=== PATIENT | female | born 1950 | race Caucasian/White ===

== ENCOUNTER 2016-07-13 18:53 | Emergency (ER) | payer OTHER ==
[~2016-07-13] VITALS: Ht 157.5 cm; Wt 87.7 kg
[2016-07-13 19:35] LABS: HEMATOCRIT 44.6 % (36.0-46.0); MCH 30.2 PG (29.0-34.0); MCHC 33.2 G/DL (30.0-36.0); MEAN PLAT.VOLUME 10.3 uM^3 (9.5-12.4); PLATELET COUNT 163 K/uL (156-360); RBC DIS.WIDTH-CV 12.4 % (11.8-14.6); RBC DIS.WIDTH-SD 41.2 % (39-53); WHITE BLOOD COUNT 4.9 K/uL (4.1-10.2)
[2016-07-13 19:45] LABS: CHLORIDE 104 mEq/L (99-109); POTASSIUM 4.2 mEq/L (3.7-5.4); SODIUM 139 mEq/L (136-147)
[2016-07-13 19:47] LABS: GLUCOSE 102 mg/dL (70-99)
[2016-07-13 19:49] LABS: ANION GAP 11 MEQ/L (2-14); TOTAL BILIRUBIN 0.4 mg/dL (0.0-1.0)
[2016-07-13 19:51] LABS: ALKALINE PHOSPHATASE 90 IU/L (3-129); GFR ESTIMATE (CALCULATED) > 59 mL/min/
[2016-07-13 19:52] LABS: UREA NITROGEN (BUN) 14 mg/dL (9-23)
[2016-07-13 19:57] LABS: TROP-I INTERPRETATION NEGATIVE; TROPONIN-I < 0.01 ng/mL (0.0-0.30)
[2016-07-13 20:48] LABS: ADD MIUA? YES; BILIRUBIN NEGATIVE; BLOOD NEGATIVE; COLOR YELLOW ((YELLOW)); GLUCOSE (STRIP) NEGATIVE; KETONES NEGATIVE; LEUKOCYTES SMALL; NITRITE NEGATIVE; PROTEIN (STRIP) NEGATIVE; SPECIFIC GRAVITY 1.014 (1.000-1.030); UROBILINOGEN 0.2 MG/DL (0.2-1.0)
[2016-07-13 20:52] LABS: BACTERIA RARE /HPF; EPITHELIAL CELLS RARE /HPF; MUCUS TRACE /LPF; RED BLOOD CELLS 0-5 /HPF (0-5); UCUL ADDED? NO
[2016-07-13] MEDS ORDERED: REGLAN10 MG PO (22:14)
[2016-07-13] MEDS ORDERED: IMITREX25 MG PO (22:14)
[2016-07-13 22:19] VITALS: BP 140/86
== END 2016-07-13 22:28 | disposition home or self-care (01) ==
LOC: EME 18:53
PROVIDERS: Emergency Medicine
DX: R51 Headache (principal)
CPT/HCPCS: 70450; 80053; 81003; 84484; 85027; 87086; 93005; 99281; 99285; J2765; J3030; J7030